=== PATIENT | female | born 1975 | race Caucasian/White ===

== ENCOUNTER 2018-10-02 10:47 | Emergency (ER) | payer OTHER, MEDICAID, SELFPAY ==
[2018-10-02] VITALS (7 sets, daily range): BP systolic 127–148; BP diastolic 78–92; PULSE 60–79; RESP 15–18; TEMP 36.4; O2SAT 98–100
--- NOTE | 2018-10-02 11:55 | PC.NURSE ---
hx of abdominal plasty 2005, developed umbilical pain, noted a pin with abdominal distentions, denies nausea or vomiting, and had normal bm today. denies injury or trauma.
--- NOTE | 2018-10-02 11:57 | PC.NURSE ---
done by practical nursing faculty cynthia. pt tolerated procedure well
[2018-10-02 12:08] LABS: Add Manual Diff / Slide Review NO; Basophils Percent Auto 0.4 % (0-2); Eosinophils Percent Auto 0.6 % (2-4); Hematocrit 42.3 % (36-46); Hemoglobin 14.6 g/dL (12.0-16.0); Lymphocytes Percent Auto 26.1 % (25-40); Mean Corpuscular HGB Conc 34.5 % (30-36); Mean Corpuscular Hemoglobin 34.4 PG (26-34); Mean Corpuscular Volume 99.5 fL (80-100); Monocytes Percent Auto 8.3 % (3-14); Neutrophils Absolute Auto 4400 /uL (3000-5900); Neutrophils Percent Auto 64.6 % (50-75); Platelet Count 208 X10^3/uL (150-400); Red Blood Cell Count 4.25 X10^6/uL (4.0-5.2); Red Cell Distribution Width 12.5 % (11.6-14.8); White Blood Cell Count 6.8 X10^3/uL (4.5-11.0)
[2018-10-02 12:13] LABS: Alanine Aminotransferase 46 IU/L (9-52); Albumin Globulin Ratio 1.5 (1.0-2.8); Alkaline Phosphatase 58 U/L (38-126); Aspartate Aminotransferase 54 IU/L (14-36); Blood Urea Nitrogen 9 mg/dL (7-17); Calcium 9.6 mg/dL (8.4-10.2); Carbon Dioxide 26 mmol/L (22-32); Chloride 99 mmol/L (98-107); Estimated Glomerular Filt Rate > 60.0 mL/min (>60); Globulin 3.4 g/dL (1.7-4.1); Glucose 93 mg/dL (70-100); HEMOLYSIS < 15 (0-50); Lipase 89 U/L (23-300); Potassium 3.5 mmol/L (3.4-5.1); Sodium 139 mmol/L (137-145); Total Protein 8.4 g/dL (6.3-8.2)
--- NOTE | 2018-10-02 12:22 | ED.ABDPAIN ---
HPI - Abdominal Pain <CASSY Vincent - Last Filed: 10/02/18 15:18> General Chief Complaint: Abdominal Pain Stated Complaint: ABDOMINAL PAIN Time Seen by Provider: 10/02/18 12:03 Source: patient Mode of arrival: ambulatory Limitations: no limitations History of Present Illness HPI narrative: c/o abd pain near belly button x 2-3 wks, that is intermittent, and thought at first it was muscular, but denies any injury/trauma, says she had abdominalplasty and you can feel a pin there, but that has always been there, describes the discomfort as feeling bloated and full, nothing makes it better, and nothing makes it worse MD complaint: abdominal pain Onset (ago): week(s) (2-3) Pain Consistency: intermittent Location: periumbilical Severity: mild Quality: fullness Radiation: none Migration to: no migration Relieving factors: nothing Exacerbating factors: nothing Associated symptoms: denies other symptoms Related Data Home Medications Medication Instructions Recorded Confirmed acyclovir 800 mg PO BID #0 12/18/17 10/02/18 alprazolam 0.25 mg PO PRN PRN 10/02/18 10/02/18 oxycodone-acetaminophen 5 - 325 mg PO PRN PRN 10/02/18 10/02/18 Allergies Allergy/AdvReac Type Severity Reaction Status Date / Time epinephrine [EPINEPHRINE] Allergy Unknown Verified 10/02/18 14:15 iodine [IODINE] Allergy Unknown Verified 10/02/18 14:15 nystatin [NYSTATIN] Allergy Unknown Verified 10/02/18 14:16 Sulfa (Sulfonamide Allergy Unknown Verified 10/02/18 14:16 Antibiotics) [SULFA (SULFONAMIDE ANTIBIOTICS)] Review of Systems <CASSY Vincent - Last Filed: 10/02/18 15:18> Constitutional Reports as per HPI Cardiovascular Denies chest pain and Denies dyspnea Respiratory Denies dyspnea Gastrointestinal Gastrointestinal: Reports as per HPI, Reports abdominal pain, Denies melena, Reports bloating, Denies hematochezia, Denies change in bowel habits, Denies change in stool character, Denies constipation, Denies heartburn, Denies diarrhea, Denies nausea and Denies vomiting Genitourinary Denies abnormal menses, Denies abnormal vaginal bleeding, Denies urinary frequency, Denies dysuria, Denies flank pain and Denies vaginal discharge Musculoskeletal Denies back pain Exam <CASSY Vincent - Last Filed: 10/02/18 15:18> Initial Vital Signs Initial Vital Signs: Vital Signs Temperature 97.6 F 10/02/18 11:14 Pulse Rate 71 10/02/18 11:14 Respiratory Rate 18 10/02/18 11:14 Blood Pressure 143/90 H 10/02/18 11:14 Pulse Oximetry 100 10/02/18 11:14 Const General: cooperative, healthy appearing, comfortable and well developed Nutritional Appearance: average body habitus Orientation: alert, awake and oriented x3 Resp Effort & Inspection: normal respiratory effort and able to speak in complete sentences Auscultation: clear to auscultation bilaterally Cardio Rate: regular rate Rhythm: regular rhythm Heart Sounds: S1 normal and S2 normal GI Inspection: normal to inspection, non-distended and no obesity Palpation: soft, No firm, No mass and No tender Auscultation: normal bowel sounds Back/Spine/Pelvis Cervical Spine: cervical ROM normal Thoracic/Lumbar Spine: thoraco-lumbar ROM limited Skin General: no rashes or lesions noted, elasticity normal, turgor normal and warm Neuro General: alert, awake and oriented x3 Cranial Nerves: CN's II-XI intact bilaterally Cognition: normal cognition Speech: speech normal Motor: muscle tone normal throughout Sensory Exam: no sensory deficits noted Psych Appearance: grossly normal and well kempt Mental Status: mental status grossly normal Speech and Movement: speech and movement normal Mood: congruent mood Affect: normal affect Attitude: cooperative Thought Process: normal Thought Content: normal Judgment: judgment good <Leelee Wilkins DO - Last Filed: 10/03/18 20:41> Initial Vital Signs Initial Vital Signs: Vital Signs Temperature 97.6 F 10/02/18 11:14 Pulse Rate 71 10/02/18 11:14 Respiratory Rate 18 10/02/18 11:14 Blood Pressure 143/90 H 10/02/18 11:14 Pulse Oximetry 100 10/02/18 11:14 Course <CASSY Vincent - Last Filed: 10/02/18 15:18> Course Narrative: 1300 verbal report from US tech, neg abd US 1420 results and dc plan discussed Orders Ordered: Discontinued Medications Ketorolac Tromethamine (Toradol) 30 mg IV NOW ONE Stop: 10/02/18 14:27 Last Admin: 10/02/18 14:28 Dose: 30 mg Vital Signs - 8 hr 10/02/18 11:14 10/02/18 12:02 10/02/18 12:30 Temperature 97.6 F Pulse Rate 71 64 60 Respiratory Rate 18 Blood Pressure 143/90 H Blood Pressure [Left Arm] 143/84 H 148/88 H Pulse Oximetry 100 100 100 10/02/18 13:00 10/02/18 13:30 10/02/18 14:00 Temperature Pulse Rate 66 60 61 Respiratory Rate 16 Blood Pressure Blood Pressure [Left Arm] 145/92 H 133/81 127/78 Pulse Oximetry 100 99 98 10/02/18 14:29 Temperature Pulse Rate 79 Respiratory Rate 15 Blood Pressure Blood Pressure [Left Arm] 127/78 Pulse Oximetry <Leelee Wilkins DO - Last Filed: 10/03/18 20:41> Orders Ordered: Discontinued Medications Ketorolac Tromethamine (Toradol) 30 mg IV NOW ONE Stop: 10/02/18 14:27 Last Admin: 10/02/18 14:28 Dose: 30 mg Vital Signs - 8 hr 10/02/18 11:14 10/02/18 12:02 10/02/18 12:30 Temperature 97.6 F Pulse Rate 71 64 60 Respiratory Rate 18 Blood Pressure 143/90 H Blood Pressure [Left Arm] 143/84 H 148/88 H Pulse Oximetry 100 100 100 10/02/18 13:00 10/02/18 13:30 10/02/18 14:00 Temperature Pulse Rate 66 60 61 Respiratory Rate 16 Blood Pressure Blood Pressure [Left Arm] 145/92 H 133/81 127/78 Pulse Oximetry 100 99 98 10/02/18 14:29 Temperature Pulse Rate 79 Respiratory Rate 15 Blood Pressure Blood Pressure [Left Arm] 127/78 Pulse Oximetry MDM - Abdominal Pain <CASSY Vincent - Last Filed: 10/02/18 15:18> Differential Diagnosis Differential diagnosis: Likely abdominal pain, calculus of kidney, constipation, diverticulitis, gastroenteritis, pancreatitis and small bowel obstruction Lab Data Result diagrams: 10/02/18 11:45 10/02/18 11:45 Lab Results 10/02/18 10/02/18 Range/Units 11:45 11:45 WBC 6.8 (4.5-11.0) X10^3/uL RBC 4.25 (4.0-5.2) X10^6/uL Hgb 14.6 (12.0-16.0) g/dL Hct 42.3 (36-46) % MCV 99.5 (80-100) fL MCH 34.4 H (26-34) PG MCHC 34.5 (30-36) % RDW 12.5 (11.6-14.8) % Plt Count 208 (150-400) X10^3/uL Neut % (Auto) 64.6 (50-75) % Lymph % (Auto) 26.1 (25-40) % [place] % (Auto) 8.3 (3-14) % Eos % (Auto) 0.6 L (2-4) % Baso % (Auto) 0.4 (0-2) % Neut # (Auto) 4400 (2899-0257) /uL Sodium 139 (137-145) mmol/L Potassium 3.5 (3.4-5.1) mmol/L Chloride 99 (98-107) mmol/L Carbon Dioxide 26 (22-32) mmol/L BUN 9 (7-17) mg/dL Creatinine 0.60 (0.52-1.04) mg/dL Estimated GFR > 60.0 (>60) mL/min BUN/Creatinine Ratio 15.0 (6-22) Glucose 93 (70-100) mg/dL Calcium 9.6 (8.4-10.2) mg/dL Total Bilirubin 1.0 (0.2-1.3) mg/dL AST 54 H (14-36) IU/L ALT 46 (9-52) IU/L Alkaline Phosphatase 58 (38-126) U/L Total Protein 8.4 H (6.3-8.2) g/dL Albumin 5.0 (3.5-5.0) g/dL Globulin 3.4 (1.7-4.1) g/dL Albumin/Globulin Ratio 1.5 (1.0-2.8) Amylase 70 (30-110) U/L Lipase 89 (23-300) U/L Point of care testing: Point of Care Testing Test Results Negative Urine Dip Bedside Urine Glucose Negative Bedside Urine Bilirubin - Negative Bedside Urine Ketone - Negative Urine Specific [place] 1.010 Bedside Urine Occult Blood - Negative Bedside Urine pH 7.0 Bedside Urine Protein - Negative Bedside Urine Urobilinogen - Negative Bedside Urine Nitrite - Negative Bedside Urine Leukocytes - Negative Esterase Imaging Data US - abdomen: My impression: verbal report from tech - neg <Leelee Wilkins, DO - Last Filed: 10/03/18 20:41> Lab Data Lab Results 10/02/18 10/02/18 Range/Units 11:45 11:45 WBC 6.8 (4.5-11.0) X10^3/uL RBC 4.25 (4.0-5.2) X10^6/uL Hgb 14.6 (12.0-16.0) g/dL Hct 42.3 (36-46) % MCV 99.5 (80-100) fL MCH 34.4 H (26-34) PG MCHC 34.5 (30-36) % RDW 12.5 (11.6-14.8) % Plt Count 208 (150-400) X10^3/uL Neut % (Auto) 64.6 (50-75) % Lymph % (Auto) 26.1 (25-40) % [place] % (Auto) 8.3 (3-14) % Eos % (Auto) 0.6 L (2-4) % Baso % (Auto) 0.4 (0-2) % Neut # (Auto) 4400 (8709-0693) /uL Sodium 139 (137-145) mmol/L Potassium 3.5 (3.4-5.1) mmol/L Chloride 99 (98-107) mmol/L Carbon Dioxide 26 (22-32) mmol/L BUN 9 (7-17) mg/dL Creatinine 0.60 (0.52-1.04) mg/dL Estimated GFR > 60.0 (>60) mL/min BUN/Creatinine Ratio 15.0 (6-22) Glucose 93 (70-100) mg/dL Calcium 9.6 (8.4-10.2) mg/dL Total Bilirubin 1.0 (0.2-1.3) mg/dL AST 54 H (14-36) IU/L ALT 46 (9-52) IU/L Alkaline Phosphatase 58 (38-126) U/L Total Protein 8.4 H (6.3-8.2) g/dL Albumin 5.0 (3.5-5.0) g/dL Globulin 3.4 (1.7-4.1) g/dL Albumin/Globulin Ratio 1.5 (1.0-2.8) Amylase 70 (30-110) U/L Lipase 89 (23-300) U/L Point of care testing: Point of Care Testing Test Results Negative Urine Dip Bedside Urine Glucose Negative Bedside Urine Bilirubin - Negative Bedside Urine Ketone - Negative Urine Specific [place] 1.010 Bedside Urine Occult Blood - Negative Bedside Urine pH 7.0 Bedside Urine Protein - Negative Bedside Urine Urobilinogen - Negative Bedside Urine Nitrite - Negative Bedside Urine Leukocytes - Negative Esterase Imaging Data US - abdomen: Radiologist's impression: [address] [address] Ultrasound Report Signed Patient: Keshia Suarez PMR#: [id number] : 1975Acct:[id number] Age/Sex: 42 / FDate of Service: 10/02/18 Loc: ED Accession Number: [id number] Procedure: US abdomen limited Ordering Provider: Lluvia Last PROCEDURE: US ABDOMEN LIMITED INDICATIONS: PERIUMBILICAL PAIN, BLOATING TECHNIQUE: Real-time focused scanning was performed of the abdomen, with image documentation. COMPARISON: None. FINDINGS: There is no hernia, mass or fluid collection in the periumbilical region. IMPRESSION: No periumbilical hernia, mass or fluid collection. Dictated by: Alexys Canela M.D. on 10/02/2018 at 14:34 Approved by: Alexys Canela M.D. on 10/02/2018 at 14:36 Discharge Plan Departure Patient Disposition: Home Clinical Impression: Abdominal pain Discharge Date/Time: 10/02/18 14:47 Interventions: ED Discharge Assessment Last Done: 10/02/18 14:40 Instructions: Acute Abdominal Pain, DI for Abdominal Pain-Adult Prescriptions: No Action acyclovir 800 MG tablet 800 mg PO BID Qty: 0 RF: 0 alprazolam 0.25 mg tablet 0.25 mg PO PRN PRN (Reason: Anxiety) RF: 0 oxycodone-acetaminophen 5-325 mg tablet 5 - 325 mg PO PRN PRN (Reason: Back Pain) RF: 0 Referrals: Miracle Mathew MD [Primary Care Provider] - (in approx 2-3 days ) <Leelee Wilkins DO - Last Filed: 10/03/18 20:41> Cosign ED Attending Cosignature Attestation: I was immediately available in the department for consultation. This documentation has been reviewed and I agree with assessment and plan. Supervised by Leelee Wilkins DO
--- NOTE | 2018-10-02 12:27 | DI.US.S_ITS ---
PROCEDURE: US ABDOMEN LIMITED INDICATIONS: PERIUMBILICAL PAIN, BLOATING TECHNIQUE: Real-time focused scanning was performed of the abdomen, with image documentation. COMPARISON: None. FINDINGS: There is no hernia, mass or fluid collection in the periumbilical region. IMPRESSION: No periumbilical hernia, mass or fluid collection. Dictated by: Alexys Canela M.D. on 10/02/2018 at 14:34 Approved by: Alexys Canela M.D. on 10/02/2018 at 14:36
--- NOTE | 2018-10-02 12:52 | ED_ITS ---
HPI - Abdominal Pain <CASSY Vincent - Last Filed: 10/02/18 15:18> General Chief Complaint: Abdominal Pain Stated Complaint: ABDOMINAL PAIN Time Seen by Provider: 10/02/18 12:03 Source: patient Mode of arrival: ambulatory Limitations: no limitations History of Present Illness HPI narrative: c/o abd pain near belly button x 2-3 wks, that is intermittent, and thought at first it was muscular, but denies any injury/trauma, says she had abdominalplasty and you can feel a pin there, but that has always been there , describes the discomfort as feeling bloated and full, nothing makes it better , and nothing makes it worse MD complaint: abdominal pain Onset (ago): week(s) (2-3) Pain Consistency: intermittent Location: periumbilical Severity: mild Quality: fullness Radiation: none Migration to: no migration Relieving factors: nothing Exacerbating factors: nothing Associated symptoms: denies other symptoms Related Data Home Medications Medication Instructions Recorded Confirmed acyclovir 800 mg PO BID #0 12/18/17 10/02/18 alprazolam 0.25 mg PO PRN PRN 10/02/18 10/02/18 oxycodone-acetaminophen 5 - 325 mg PO PRN PRN 10/02/18 10/02/18 Allergies Allergy/AdvReac Type Severity Reaction Status Date / Time epinephrine [EPINEPHRINE] Allergy Unknown Verified 10/02/18 14:15 iodine [IODINE] Allergy Unknown Verified 10/02/18 14:15 nystatin [NYSTATIN] Allergy Unknown Verified 10/02/18 14:16 Sulfa (Sulfonamide Allergy Unknown Verified 10/02/18 14:16 Antibiotics) [SULFA (SULFONAMIDE ANTIBIOTICS)] Review of Systems <CASSY Vincent - Last Filed: 10/02/18 15:18> Constitutional Reports as per HPI Cardiovascular Denies chest pain and Denies dyspnea Respiratory Denies dyspnea Gastrointestinal Gastrointestinal: Reports as per HPI, Reports abdominal pain, Denies melena, Reports bloating, Denies hematochezia, Denies change in bowel habits, Denies change in stool character, Denies constipation, Denies heartburn, Denies diarrhea, Denies nausea and Denies vomiting Genitourinary Denies abnormal menses, Denies abnormal vaginal bleeding, Denies urinary frequency, Denies dysuria, Denies flank pain and Denies vaginal discharge Musculoskeletal Denies back pain Exam <CASSY Vincent - Last Filed: 10/02/18 15:18> Initial Vital Signs Initial Vital Signs: Vital Signs Temperature 97.6 F 10/02/18 11:14 Pulse Rate 71 10/02/18 11:14 Respiratory Rate 18 10/02/18 11:14 Blood Pressure 143/90 H 10/02/18 11:14 Pulse Oximetry 100 10/02/18 11:14 Const General: cooperative, healthy appearing, comfortable and well developed Nutritional Appearance: average body habitus Orientation: alert, awake and oriented x3 Resp Effort & Inspection: normal respiratory effort and able to speak in complete sentences Auscultation: clear to auscultation bilaterally Cardio Rate: regular rate Rhythm: regular rhythm Heart Sounds: S1 normal and S2 normal GI Inspection: normal to inspection, non-distended and no obesity Palpation: soft, No firm, No mass and No tender Auscultation: normal bowel sounds Back/Spine/Pelvis Cervical Spine: cervical ROM normal Thoracic/Lumbar Spine: thoraco-lumbar ROM limited Skin General: no rashes or lesions noted, elasticity normal, turgor normal and warm Neuro General: alert, awake and oriented x3 Cranial Nerves: CN's II-XI intact bilaterally Cognition: normal cognition Speech: speech normal Motor: muscle tone normal throughout Sensory Exam: no sensory deficits noted Psych Appearance: grossly normal and well kempt Mental Status: mental status grossly normal Speech and Movement: speech and movement normal Mood: congruent mood Affect: normal affect Attitude: cooperative Thought Process: normal Thought Content: normal Judgment: judgment good <Leelee Wilkins DO - Last Filed: 10/03/18 20:41> Initial Vital Signs Initial Vital Signs: Vital Signs Temperature 97.6 F 10/02/18 11:14 Pulse Rate 71 10/02/18 11:14 Respiratory Rate 18 10/02/18 11:14 Blood Pressure 143/90 H 10/02/18 11:14 Pulse Oximetry 100 10/02/18 11:14 Course <CASSY Vincent - Last Filed: 10/02/18 15:18> Course Narrative: 1300 verbal report from US tech, neg abd US 1420 results and dc plan discussed Orders Ordered: Discontinued Medications Ketorolac Tromethamine (Toradol) 30 mg IV NOW ONE Stop: 10/02/18 14:27 Last Admin: 10/02/18 14:28 Dose: 30 mg Vital Signs - 8 hr 10/02/18 11:14 10/02/18 12:02 10/02/18 12:30 Temperature 97.6 F Pulse Rate 71 64 60 Respiratory Rate 18 Blood Pressure 143/90 H Blood Pressure [Left Arm] 143/84 H 148/88 H Pulse Oximetry 100 100 100 10/02/18 13:00 10/02/18 13:30 10/02/18 14:00 Temperature Pulse Rate 66 60 61 Respiratory Rate 16 Blood Pressure Blood Pressure [Left Arm] 145/92 H 133/81 127/78 Pulse Oximetry 100 99 98 10/02/18 14:29 Temperature Pulse Rate 79 Respiratory Rate 15 Blood Pressure Blood Pressure [Left Arm] 127/78 Pulse Oximetry <Leelee Wilkins DO - Last Filed: 10/03/18 20:41> Orders Ordered: Discontinued Medications Ketorolac Tromethamine (Toradol) 30 mg IV NOW ONE Stop: 10/02/18 14:27 Last Admin: 10/02/18 14:28 Dose: 30 mg Vital Signs - 8 hr 10/02/18 11:14 10/02/18 12:02 10/02/18 12:30 Temperature 97.6 F Pulse Rate 71 64 60 Respiratory Rate 18 Blood Pressure 143/90 H Blood Pressure [Left Arm] 143/84 H 148/88 H Pulse Oximetry 100 100 100 10/02/18 13:00 10/02/18 13:30 10/02/18 14:00 Temperature Pulse Rate 66 60 61 Respiratory Rate 16 Blood Pressure Blood Pressure [Left Arm] 145/92 H 133/81 127/78 Pulse Oximetry 100 99 98 10/02/18 14:29 Temperature Pulse Rate 79 Respiratory Rate 15 Blood Pressure Blood Pressure [Left Arm] 127/78 Pulse Oximetry MDM - Abdominal Pain <CASSY Vincent - Last Filed: 10/02/18 15:18> Differential Diagnosis Differential diagnosis: Likely abdominal pain, calculus of kidney, constipation , diverticulitis, gastroenteritis, pancreatitis and small bowel obstruction Lab Data Result diagrams: 10/02/18 11:45 10/02/18 11:45 Lab Results 10/02/18 10/02/18 Range/Units 11:45 11:45 WBC 6.8 (4.5-11.0) X10^3/uL RBC 4.25 (4.0-5.2) X10^6/uL Hgb 14.6 (12.0-16.0) g/dL Hct 42.3 (36-46) % MCV 99.5 (80-100) fL MCH 34.4 H (26-34) PG MCHC 34.5 (30-36) % RDW 12.5 (11.6-14.8) % Plt Count 208 (150-400) X10^3/uL Neut % (Auto) 64.6 (50-75) % Lymph % (Auto) 26.1 (25-40) % [place] % (Auto) 8.3 (3-14) % Eos % (Auto) 0.6 L (2-4) % Baso % (Auto) 0.4 (0-2) % Neut # (Auto) 4400 (7474-9349) /uL Sodium 139 (137-145) mmol/L Potassium 3.5 (3.4-5.1) mmol/L Chloride 99 (98-107) mmol/L Carbon Dioxide 26 (22-32) mmol/L BUN 9 (7-17) mg/dL Creatinine 0.60 (0.52-1.04) mg/dL Estimated GFR > 60.0 (>60) mL/min BUN/Creatinine Ratio 15.0 (6-22) Glucose 93 (70-100) mg/dL Calcium 9.6 (8.4-10.2) mg/dL Total Bilirubin 1.0 (0.2-1.3) mg/dL AST 54 H (14-36) IU/L ALT 46 (9-52) IU/L Alkaline Phosphatase 58 (38-126) U/L Total Protein 8.4 H (6.3-8.2) g/dL Albumin 5.0 (3.5-5.0) g/dL Globulin 3.4 (1.7-4.1) g/dL Albumin/Globulin Ratio 1.5 (1.0-2.8) Amylase 70 (30-110) U/L Lipase 89 (23-300) U/L Point of care testing: Point of Care Testing Test Results Negative Urine Dip Bedside Urine Glucose Negative Bedside Urine Bilirubin - Negative Bedside Urine Ketone - Negative Urine Specific [place] 1.010 Bedside Urine Occult Blood - Negative Bedside Urine pH 7.0 Bedside Urine Protein - Negative Bedside Urine Urobilinogen - Negative Bedside Urine Nitrite - Negative Bedside Urine Leukocytes - Negative Esterase Imaging Data US - abdomen: My impression: verbal report from tech - neg <Leelee Wilkins, DO - Last Filed: 10/03/18 20:41> Lab Data Lab Results 10/02/18 10/02/18 Range/Units 11:45 11:45 WBC 6.8 (4.5-11.0) X10^3/uL RBC 4.25 (4.0-5.2) X10^6/uL Hgb 14.6 (12.0-16.0) g/dL Hct 42.3 (36-46) % MCV 99.5 (80-100) fL MCH 34.4 H (26-34) PG MCHC 34.5 (30-36) % RDW 12.5 (11.6-14.8) % Plt Count 208 (150-400) X10^3/uL Neut % (Auto) 64.6 (50-75) % Lymph % (Auto) 26.1 (25-40) % [place] % (Auto) 8.3 (3-14) % Eos % (Auto) 0.6 L (2-4) % Baso % (Auto) 0.4 (0-2) % Neut # (Auto) 4400 (7922-7462) /uL Sodium 139 (137-145) mmol/L Potassium 3.5 (3.4-5.1) mmol/L Chloride 99 (98-107) mmol/L Carbon Dioxide 26 (22-32) mmol/L BUN 9 (7-17) mg/dL Creatinine 0.60 (0.52-1.04) mg/dL Estimated GFR > 60.0 (>60) mL/min BUN/Creatinine Ratio 15.0 (6-22) Glucose 93 (70-100) mg/dL Calcium 9.6 (8.4-10.2) mg/dL Total Bilirubin 1.0 (0.2-1.3) mg/dL AST 54 H (14-36) IU/L ALT 46 (9-52) IU/L Alkaline Phosphatase 58 (38-126) U/L Total Protein 8.4 H (6.3-8.2) g/dL Albumin 5.0 (3.5-5.0) g/dL Globulin 3.4 (1.7-4.1) g/dL Albumin/Globulin Ratio 1.5 (1.0-2.8) Amylase 70 (30-110) U/L Lipase 89 (23-300) U/L Point of care testing: Point of Care Testing Test Results Negative Urine Dip Bedside Urine Glucose Negative Bedside Urine Bilirubin - Negative Bedside Urine Ketone - Negative Urine Specific [place] 1.010 Bedside Urine Occult Blood - Negative Bedside Urine pH 7.0 Bedside Urine Protein - Negative Bedside Urine Urobilinogen - Negative Bedside Urine Nitrite - Negative Bedside Urine Leukocytes - Negative Esterase Imaging Data US - abdomen: Radiologist's impression: [address] [address] Ultrasound Report Signed Patient: Keshia Suarez PMR#: [id number] : 1975Acct:[id number] Age/Sex: 42 / FDate of Service: 10/02/18 Loc: ED Accession Number: [id number] Procedure: US abdomen limited Ordering Provider: Lluvia Last PROCEDURE: US ABDOMEN LIMITED INDICATIONS: PERIUMBILICAL PAIN, BLOATING TECHNIQUE: Real-time focused scanning was performed of the abdomen, with image documentation. COMPARISON: None. FINDINGS: There is no hernia, mass or fluid collection in the periumbilical region. IMPRESSION: No periumbilical hernia, mass or fluid collection. Dictated by: Alexys Canela M.D. on 10/02/2018 at 14:34 Approved by: Alexys Canela M.D. on 10/02/2018 at 14:36 Discharge Plan Departure Patient Disposition: Home Clinical Impression: Abdominal pain Discharge Date/Time: 10/02/18 14:47 Interventions: ED Discharge Assessment Last Done: 10/02/18 14:40 Instructions: Acute Abdominal Pain, DI for Abdominal Pain-Adult Prescriptions: No Action acyclovir 800 MG tablet 800 mg PO BID Qty: 0 RF: 0 alprazolam 0.25 mg tablet 0.25 mg PO PRN PRN (Reason: Anxiety) RF: 0 oxycodone-acetaminophen 5-325 mg tablet 5 - 325 mg PO PRN PRN (Reason: Back Pain) RF: 0 Referrals: Miracle Mathew MD [Primary Care Provider] - (in approx 2-3 days ) <Leelee Wilkins DO - Last Filed: 10/03/18 20:41> Cosign ED Attending Cosignature Attestation: I was immediately available in the department for consultation. This documentation has been reviewed and I agree with assessment and plan. Supervised by Leelee Wilkins DO
[2018-10-02 14:16] LABS: Amylase 70 U/L (30-110)
[2018-10-02] MEDS: KETOROLAC 60 MG/2 ML VIAL 30 MG IV (14:28)
== END 2018-10-02 14:47 | disposition home or self-care (01) ==
PROVIDERS: Emergency Medicine; Emergency Provider Nurse Practitioner; Family Provider Family Medicine; PCP Family Medicine
DX: R10.9 Unspecified abdominal pain (principal)
CPT/HCPCS: 76705; 80053; 81003; 81025; 82150; 83690; 85025; 93005; 96374; 99283; 99285; J1885

== ENCOUNTER 2021-01-17 12:10 | Emergency (ER) | payer BC, OTHER, MEDICAID, SELFPAY ==
[2021-01-17 12:30] VITALS: BP 162/95; PULSE 77; RESP 16; TEMP 36.8; O2SAT 97; BMI 23.1
[2021-01-17 13:06] LABS: Add Manual Diff / Slide Review NO; Basophils Absolute Auto 0 /uL (0-100); Basophils Percent Auto 0.2 % (0-2); Eosinophils Absolute Auto 0 /uL (0-450); Eosinophils Percent Auto 0.4 % (2-4); Hematocrit 40.3 % (36-46); Lymphocytes Absolute Auto 1200 /uL (1100-4500); Lymphocytes Percent Auto 19.1 % (25-40); Mean Corpuscular HGB Conc 34.8 % (30-36); Mean Corpuscular Hemoglobin 35.1 PG (26-34); Monocytes Absolute Auto 600 /uL (0-900); Monocytes Percent Auto 8.9 % (3-14); Neutrophils Absolute Auto 4600 /uL (1500-7000); Neutrophils Percent Auto 71.4 % (50-75); Platelet Count 174 X10^3/uL (150-400); Red Blood Cell Count 3.98 X10^6/uL (4.0-5.2); Red Cell Distribution Width 12.2 % (11.6-14.8); White Blood Cell Count 6.5 X10^3/uL (4.5-11.0)
[2021-01-17 13:13] LABS: Prothrombin Time 11.2 SECONDS (10.1-12.7)
[2021-01-17 13:15] LABS: PTT Partial Thromboplastin Tim 29 SECONDS (26.4-36.2)
[2021-01-17 13:17] VITALS: BP 155/86; PULSE 61; RESP 18; O2SAT 100
[2021-01-17 13:36] LABS: Alanine Aminotransferase 106 IU/L (<35); Albumin 4.7 g/dL (3.5-5.0); Albumin Globulin Ratio 1.3 (1.0-2.8); Alkaline Phosphatase 77 U/L (38-126); Aspartate Aminotransferase 131 IU/L (14-36); BUN Creatinine Ratio 16.9 (6-22); Bilirubin Total 0.7 mg/dL (0.2-1.3); Blood Urea Nitrogen 10 mg/dL (7-17); Calcium 9.6 mg/dL (8.4-10.2); Carbon Dioxide 26 mmol/L (22-32); Chloride 101 mmol/L (98-107); Estimated Glomerular Filt Rate > 60.0 mL/min (>60); Globulin 3.6 g/dL (1.7-4.1); Glucose 101 mg/dL (70-100); HEMOLYSIS 23 (0-50); Lipase 89 U/L (23-300); Potassium 4.4 mmol/L (3.4-5.1); Sodium 133 mmol/L (137-145); Total Protein 8.3 g/dL (6.3-8.2)
[2021-01-17 14:11] LABS: Magnesium 1.4 mg/dL (1.6-2.3)
[2021-01-17 14:21] LABS: NT-proBNP (BNP-Adult 18+) 54 pg/mL (<125)
[2021-01-17] MEDS: SIMETHICONE 80 MG TABLET PO (14:22)
[2021-01-17 14:54] LABS: Thyroid Stimulating Hormone 0.975 uIU/mL (0.47-4.68)
--- NOTE | 2021-01-17 15:13 | ED.ABDPAIN ---
HPI - Abdominal Pain <KEMI Kimbrough-BC - Last Filed: 01/17/21 15:29> General Chief Complaint: Abdominal Pain Stated Complaint: Abd Pain and 9lb Weight Gain,Swelling Time Seen by Provider: 01/17/21 13:42 Source: patient Mode of arrival: Ambulatory Limitations: no limitations History of Present Illness HPI narrative: The patient is a 45-year-old female who denies pertinent medical history presents with a chief complaint of abdominal bloating, as well as a 7 lb weight gain over the past month. She notes that she went from running 4 times a week to running once to twice a week. She also states that she has been eating knee and she use, which she states her system does not tolerate well. She states that she has makes her bloated. She notes that she has had looser stools today. Denies any dysuria urgency or frequency. Denies any nausea or vomiting. Denies any fevers muscle aches or chills. She has not followed up with primary care provider regarding this. She denies any history of thyroid issues. Related Data Home Medications Medication Instructions Recorded Confirmed acyclovir 800 mg PO BID #0 12/18/17 10/02/18 alprazolam 0.25 mg PO PRN PRN 10/02/18 10/02/18 oxycodone-acetaminophen 5 - 325 mg PO PRN PRN 10/02/18 10/02/18 Allergies Allergy/AdvReac Type Severity Reaction Status Date / Time epinephrine [EPINEPHRINE] Allergy Unknown Verified 10/02/18 14:15 iodine [IODINE] Allergy Unknown Verified 10/02/18 14:15 nystatin [NYSTATIN] Allergy Unknown Verified 10/02/18 14:16 Sulfa (Sulfonamide Allergy Unknown Verified 10/02/18 14:16 Antibiotics) [SULFA (SULFONAMIDE ANTIBIOTICS)] Review of Systems <PRINCESS Kimbrough - Last Filed: 01/17/21 15:29> Review of Systems Narrative: GENERAL: Denies chills, fatigue, malaise, fever, sweats. HEENT: Denies sinus pain, ear pain, sore throat, difficulty swallowing, dizziness. RESPIRATORY: Denies dyspnea, cough, wheezing, hemoptysis, sputum. CARDIOVASCULAR: Denies chest pain, palpitations, orthopnea, edema, GASTROINTESTINAL: See HPI : Denies dysuria, frequency, incontinence, hematuria, urinary retention. MUSCULOSKELETAL: denies weakness, joint pain, or bony pain SKIN: Denies rash, skin lesions, or other NEUROLOGIC: Denies weakness, headache, numbness, change in speech, confusion, seizures, incoordination. PSYCHIATRIC: No concerning psychosocial issues. 12 point review of systems is negative except for those stated above Patient History <Leelee KEMI Erazo-MAITE - Last Filed: 01/17/21 15:29> Social History Smoking Status: Former smoker Smoking Status: Former smoker alcohol intake frequency: 3 or more drinks per day Substance Use Type: does not use Exam <PRINCESS Kimbrough - Last Filed: 01/17/21 15:29> Narrative Exam Narrative: GENERAL: This is a well-nourished, well-developed patient, in no acute distress HEAD: Atraumatic. Normocephalic. No temporal or scalp tenderness. EYES: Pupils equal round and reactive. Extraocular motions intact. No scleral icterus. No injection or drainage. ENT: Nose without bleeding, purulent drainage or septal hematoma. Wearing a mask. Airway patent. NECK: Trachea midline. No JVD or lymphadenopathy. Supple, nontender, no meningeal signs. CARDIOVASCULAR: Regular rate and rhythm RESPIRATORY: Clear to auscultation. Breath sounds equal bilaterally. No wheezes, rales, or rhonchi. No cough. No increased respiratory effort. No accessory muscle use. GASTROINTESTINAL: Abdomen soft, non-tender, nondistended. No hepato-splenomegaly, or palpable masses. Active bowel sounds all 4 quadrants. No guarding. No pain to right upper quadrant, left upper quadrant left lower quadrant right lower quadrant palpation. EXTREMITIES: No clubbing, cyanosis, or edema. No joint tenderness, effusion, or edema noted. BACK: Nontender without deformity or crepitance. No flank tenderness. NEURO: AOx3. SKIN: No rash or erythema on visible skin Initial Vital Signs Initial Vital Signs: Vital Signs Temperature 98.3 F 01/17/21 12:30 Pulse Rate 77 01/17/21 12:30 Respiratory Rate 16 01/17/21 12:30 Blood Pressure 162/95 H 01/17/21 12:30 Pulse Oximetry 97 01/17/21 12:30 <Pancho Bernal MD - Last Filed: 01/17/21 18:46> Initial Vital Signs Initial Vital Signs: Vital Signs Temperature 98.3 F 01/17/21 12:30 Pulse Rate 77 01/17/21 12:30 Respiratory Rate 16 01/17/21 12:30 Blood Pressure 162/95 H 01/17/21 12:30 Pulse Oximetry 97 01/17/21 12:30 Scores <PRINCESS Kimbrough - Last Filed: 01/17/21 15:29> GCS Nate coma scale eye opening: Spontaneous Nate coma scale verbal response: Orientated Nate coma scale motor response: Obey commands [place] coma scale total score: 15 Course <PRINCESS Kimbrough - Last Filed: 01/17/21 15:29> Orders Ordered: ED Orders 01/17/21 12:50 Complete Blood Count AUTO DIFF Stat Comprehensive Metabolic Panel Stat Lipase Stat Partial Thromboplastin Time Stat Prothrombin Time INR Stat 01/17/21 12:58 Magnesium Stat NT-proBNP (BNP-Adult 18+) Stat Thyroid Stimulating Hormone Stat Discontinued Medications Magnesium Oxide (Magnesium Oxide 400 Mg Tablet) 400 mg PO NOW ONE Stop: 01/17/21 15:13 Last Admin: 01/17/21 15:18 Dose: 400 mg Documented by: KATERINA Simethicone (Simethicone 80 Mg Tablet) 80 mg PO NOW ONE Stop: 01/17/21 14:11 Last Admin: 01/17/21 14:22 Dose: 80 mg Documented by: BSMEN Vital Signs Vital signs: Vital Signs - 8 hr 01/17/21 12:30 01/17/21 13:17 01/17/21 15:34 Temperature 98.3 F Pulse Rate 77 61 66 Respiratory Rate 16 18 16 Blood Pressure 162/95 H 155/86 H 140/89 Pulse Oximetry 97 100 99 <Pancho Bernal MD - Last Filed: 01/17/21 18:46> Orders Ordered: ED Orders 01/17/21 12:50 Complete Blood Count AUTO DIFF Stat Comprehensive Metabolic Panel Stat Lipase Stat Partial Thromboplastin Time Stat Prothrombin Time INR Stat 01/17/21 12:58 Magnesium Stat NT-proBNP (BNP-Adult 18+) Stat Thyroid Stimulating Hormone Stat Discontinued Medications Magnesium Oxide (Magnesium Oxide 400 Mg Tablet) 400 mg PO NOW ONE Stop: 01/17/21 15:13 Last Admin: 01/17/21 15:18 Dose: 400 mg Documented by: KATERINA Simethicone (Simethicone 80 Mg Tablet) 80 mg PO NOW ONE Stop: 01/17/21 14:11 Last Admin: 01/17/21 14:22 Dose: 80 mg Documented by: JOSEFINA Vital Signs Vital signs: Vital Signs - 8 hr 01/17/21 12:30 01/17/21 13:17 01/17/21 15:34 Temperature 98.3 F Pulse Rate 77 61 66 Respiratory Rate 16 18 16 Blood Pressure 162/95 H 155/86 H 140/89 Pulse Oximetry 97 100 99 MDM - Abdominal Pain <KEMI Kimbrough- - Last Filed: 01/17/21 15:29> Lab Data Result diagrams: 01/17/21 12:50 01/17/21 12:50 Labs: Lab Results 01/17/21 01/17/21 01/17/21 Range/Units 12:50 12:50 12:50 WBC 6.5 (4.5-11.0) X10^3/uL RBC 3.98 L (4.0-5.2) X10^6/uL Hgb 14.0 (12.0-16.0) g/dL Hct 40.3 (36-46) % MCV 101.0 H (80-100) fL MCH 35.1 H (26-34) PG MCHC 34.8 (30-36) % RDW 12.2 (11.6-14.8) % Plt Count 174 (150-400) X10^3/uL Neut % (Auto) 71.4 (50-75) % Lymph % (Auto) 19.1 L (25-40) % [place] % (Auto) 8.9 (3-14) % Eos % (Auto) 0.4 L (2-4) % Baso % (Auto) 0.2 (0-2) % Neut # (Auto) 4600 (7878-3006) /uL Lymph # (Auto) 1200 (0538-6753) /uL [place] # (Auto) 600 (0-900) /uL Eos # (Auto) 0 (0-450) /uL Baso # (Auto) 0 (0-100) /uL PT 11.2 (10.1-12.7) SECONDS INR 1.0 (0.9-1.3) APTT 29 (26.4-36.2) SECONDS Sodium 133 L (137-145) mmol/L Potassium 4.4 (3.4-5.1) mmol/L Chloride 101 (98-107) mmol/L Carbon Dioxide 26 (22-32) mmol/L BUN 10 (7-17) mg/dL Creatinine 0.59 (0.52-1.04) mg/dL Estimated GFR > 60.0 (>60) mL/min BUN/Creatinine Ratio 16.9 (6-22) Glucose 101 H (70-100) mg/dL Calcium 9.6 (8.4-10.2) mg/dL Magnesium (1.6-2.3) mg/dL Total Bilirubin 0.7 (0.2-1.3) mg/dL AST 131 H (14-36) IU/L ALT 106 H (<35) IU/L Alkaline Phosphatase 77 (38-126) U/L NT-Pro-B Natriuret Pep (<125) pg/mL Total Protein 8.3 H (6.3-8.2) g/dL Albumin 4.7 (3.5-5.0) g/dL Globulin 3.6 (1.7-4.1) g/dL Albumin/Globulin Ratio 1.3 (1.0-2.8) Lipase 89 (23-300) U/L TSH (0.47-4.68) uIU/mL 01/17/21 01/17/21 Range/Units 12:58 12:58 WBC (4.5-11.0) X10^3/uL RBC (4.0-5.2) X10^6/uL Hgb (12.0-16.0) g/dL Hct (36-46) % MCV (80-100) fL MCH (26-34) PG MCHC (30-36) % RDW (11.6-14.8) % Plt Count (150-400) X10^3/uL Neut % (Auto) (50-75) % Lymph % (Auto) (25-40) % [place] % (Auto) (3-14) % Eos % (Auto) (2-4) % Baso % (Auto) (0-2) % Neut # (Auto) (7718-6982) /uL Lymph # (Auto) (8165-3996) /uL [place] # (Auto) (0-900) /uL Eos # (Auto) (0-450) /uL Baso # (Auto) (0-100) /uL PT (10.1-12.7) SECONDS INR (0.9-1.3) APTT (26.4-36.2) SECONDS Sodium (137-145) mmol/L Potassium (3.4-5.1) mmol/L Chloride (98-107) mmol/L Carbon Dioxide (22-32) mmol/L BUN (7-17) mg/dL Creatinine (0.52-1.04) mg/dL Estimated GFR (>60) mL/min BUN/Creatinine Ratio (6-22) Glucose (70-100) mg/dL Calcium (8.4-10.2) mg/dL Magnesium 1.4 L (1.6-2.3) mg/dL Total Bilirubin (0.2-1.3) mg/dL AST (14-36) IU/L ALT (<35) IU/L Alkaline Phosphatase (38-126) U/L NT-Pro-B Natriuret Pep 54 (<125) pg/mL Total Protein (6.3-8.2) g/dL Albumin (3.5-5.0) g/dL Globulin (1.7-4.1) g/dL Albumin/Globulin Ratio (1.0-2.8) Lipase (23-300) U/L TSH 0.975 (0.47-4.68) uIU/mL Point of care testing: Point of Care Testing Test Results Negative Urine Dip Bedside Urine Glucose Negative Bedside Urine Bilirubin - Negative Bedside Urine Ketone - Negative Urine Specific [place] 1.020 Bedside Urine Occult Blood - Negative Bedside Urine pH 6.0 Bedside Urine Protein - Negative Bedside Urine Urobilinogen - Negative Bedside Urine Nitrite - Negative Bedside Urine Leukocytes - Negative Esterase MDM Narrative Medical decision making narrative: The patient is a 45-year-old female who presents with a chief complaint of 7 lb weight gain over the past month. She has no acute distress on exam, no pain on repeated abdominal exams. Overall lab work is reassuring with no leukocytosis. She has no red flag symptoms of abdominal pain with fever, inability keep down fluids etcetera. Elected to hold off on imaging today. I did strongly encourage her to change her diet, and not eat foods such as me and she has that she knows do not agree with her. Encouraged her keeping a food journal. Discussed at length come back to the ER for acute concerns such as abdominal pain with fever, inability keep down fluids etcetera. Encouraged primary care provider follow-up in the next few days. Patient has no questions or concerns upon discharge states understanding return precautions as well as follow-up care. Was noted to be slightly low on magnesium, so replaced in the emergency department. Patient has been hemodynamically stable appearing well and nontoxic throughout her stay in the ER. <Pancho Bernal MD - Last Filed: 01/17/21 18:46> Lab Data Labs: Lab Results 01/17/21 01/17/21 01/17/21 Range/Units 12:50 12:50 12:50 WBC 6.5 (4.5-11.0) X10^3/uL RBC 3.98 L (4.0-5.2) X10^6/uL Hgb 14.0 (12.0-16.0) g/dL Hct 40.3 (36-46) % MCV 101.0 H (80-100) fL MCH 35.1 H (26-34) PG MCHC 34.8 (30-36) % RDW 12.2 (11.6-14.8) % Plt Count 174 (150-400) X10^3/uL Neut % (Auto) 71.4 (50-75) % Lymph % (Auto) 19.1 L (25-40) % [place] % (Auto) 8.9 (3-14) % Eos % (Auto) 0.4 L (2-4) % Baso % (Auto) 0.2 (0-2) % Neut # (Auto) 4600 (5311-0662) /uL Lymph # (Auto) 1200 (0149-0213) /uL [place] # (Auto) 600 (0-900) /uL Eos # (Auto) 0 (0-450) /uL Baso # (Auto) 0 (0-100) /uL PT 11.2 (10.1-12.7) SECONDS INR 1.0 (0.9-1.3) APTT 29 (26.4-36.2) SECONDS Sodium 133 L (137-145) mmol/L Potassium 4.4 (3.4-5.1) mmol/L Chloride 101 (98-107) mmol/L Carbon Dioxide 26 (22-32) mmol/L BUN 10 (7-17) mg/dL Creatinine 0.59 (0.52-1.04) mg/dL Estimated GFR > 60.0 (>60) mL/min BUN/Creatinine Ratio 16.9 (6-22) Glucose 101 H (70-100) mg/dL Calcium 9.6 (8.4-10.2) mg/dL Magnesium (1.6-2.3) mg/dL Total Bilirubin 0.7 (0.2-1.3) mg/dL AST 131 H (14-36) IU/L ALT 106 H (<35) IU/L Alkaline Phosphatase 77 (38-126) U/L NT-Pro-B Natriuret Pep (<125) pg/mL Total Protein 8.3 H (6.3-8.2) g/dL Albumin 4.7 (3.5-5.0) g/dL Globulin 3.6 (1.7-4.1) g/dL Albumin/Globulin Ratio 1.3 (1.0-2.8) Lipase 89 (23-300) U/L TSH (0.47-4.68) uIU/mL 01/17/21 01/17/21 Range/Units 12:58 12:58 WBC (4.5-11.0) X10^3/uL RBC (4.0-5.2) X10^6/uL Hgb (12.0-16.0) g/dL Hct (36-46) % MCV (80-100) fL MCH (26-34) PG MCHC (30-36) % RDW (11.6-14.8) % Plt Count (150-400) X10^3/uL Neut % (Auto) (50-75) % Lymph % (Auto) (25-40) % [place] % (Auto) (3-14) % Eos % (Auto) (2-4) % Baso % (Auto) (0-2) % Neut # (Auto) (9869-7109) /uL Lymph # (Auto) (4860-0059) /uL [place] # (Auto) (0-900) /uL Eos # (Auto) (0-450) /uL Baso # (Auto) (0-100) /uL PT (10.1-12.7) SECONDS INR (0.9-1.3) APTT (26.4-36.2) SECONDS Sodium (137-145) mmol/L Potassium (3.4-5.1) mmol/L Chloride (98-107) mmol/L Carbon Dioxide (22-32) mmol/L BUN (7-17) mg/dL Creatinine (0.52-1.04) mg/dL Estimated GFR (>60) mL/min BUN/Creatinine Ratio (6-22) Glucose (70-100) mg/dL Calcium (8.4-10.2) mg/dL Magnesium 1.4 L (1.6-2.3) mg/dL Total Bilirubin (0.2-1.3) mg/dL AST (14-36) IU/L ALT (<35) IU/L Alkaline Phosphatase (38-126) U/L NT-Pro-B Natriuret Pep 54 (<125) pg/mL Total Protein (6.3-8.2) g/dL Albumin (3.5-5.0) g/dL Globulin (1.7-4.1) g/dL Albumin/Globulin Ratio (1.0-2.8) Lipase (23-300) U/L TSH 0.975 (0.47-4.68) uIU/mL Point of care testing: Point of Care Testing Test Results Negative Urine Dip Bedside Urine Glucose Negative Bedside Urine Bilirubin - Negative Bedside Urine Ketone - Negative Urine Specific [place] 1.020 Bedside Urine Occult Blood - Negative Bedside Urine pH 6.0 Bedside Urine Protein - Negative Bedside Urine Urobilinogen - Negative Bedside Urine Nitrite - Negative Bedside Urine Leukocytes - Negative Esterase Discharge Plan Departure Patient Disposition: Home Clinical Impression: Abdominal bloating, Weight gain, Elevated AST (SGOT), Elevated alanine aminotransferase (ALT) level Instructions: How to Avoid Gas, Intestinal Gas (Alternative Therapy), DI for Abdominal Pain-Adult Activity Restrictions/Additional Instructions: Thank you for trusting us with your care today As discussed, please follow-up with primary care provider in the next few days Please come back to the emergency department for any acute concerns such as abdominal pain with fever inability keep down fluids etcetera. I strongly suggest staying away from red meat and dairy as these have irritated her stomach in the past. Maybe keep a food journal. Overall your lab work was very reassuring today with good kidney function and no elevated white blood cell count, though we did note very slightly elevated liver enzymes. I suggest decreasing your alcohol intake. Prescriptions: No Action acyclovir 800 MG tablet 800 mg PO BID Qty: 0 RF: 0 alprazolam 0.25 mg tablet 0.25 mg PO PRN PRN (Reason: Anxiety) RF: 0 oxycodone-acetaminophen 5-325 mg tablet 5 - 325 mg PO PRN PRN (Reason: Back Pain) RF: 0 Referrals: Miracle Mathew MD [Primary Care Provider] - <Pancho Bernal MD - Last Filed: 01/17/21 18:46> Cosign ED Attending Cosignature Attestation: I was immediately available in the department for consultation. This documentation has been reviewed and I agree with assessment and plan. Supervised by Pancho Bernal MD
[2021-01-17] MEDS: MAGNESIUM OXIDE 400 MG TABLET PO (15:18)
[2021-01-17 15:34] VITALS: BP 140/89; PULSE 66; RESP 16; O2SAT 99
== END 2021-01-17 15:35 | disposition home or self-care (01) ==
PROVIDERS: Emergency Medicine; Emergency Provider Nurse Practitioner Family; Family Provider Family Medicine; PCP Family Medicine
DX: R14.0 Abdominal distension (gaseous) (principal); R63.5 Abnormal weight gain; R74.01 Elevation of levels of liver transaminase levels
CPT/HCPCS: 36415; 80053; 81003; 81025; 83690; 83735; 83880; 84443; 85025; 85610; 85730; 99283

== ENCOUNTER → 2023-08-17 17:18 | Outpatient (CLI) | payer BC, SELFPAY ==
--- NOTE | 2023-08-17 | DI.MRI.S_ITS ---
PROCEDURE: MR HEAD/BRAIN WO CON INDICATIONS: Tinnitis of lt ear, Hypercusis of lt ear TECHNIQUE: Noncontrast axial T1 spin echo, axial T2 fast spin echo, sagittal and axial FLAIR, coronal T2 fast spin echo, axial gradient echo, axial diffusion and ADC through the brain. Thin section T2 weighted images through the internal auditory canals are obtained as well. COMPARISON: None. FINDINGS: Image quality: Excellent. CSF Spaces: Basal cisterns are patent. No extra-axial fluid collections. Ventricles are normal in size and shape. IAC: 7th and 8th cranial nerve root complexes are unremarkable. Brain: No intracranial masses or hemorrhage. Guillen/white matter interface is normal. Brainstem appears normal. Diffusion-weighted sequence is unremarkable without evidence of acute infarct. Normal intravascular flow voids are present. Skull and face: Calvarium has normal marrow signal. Orbits appear normal. Sinuses: Sinuses and mastoids are clear. IMPRESSION: Unremarkable MRI of the brain and internal auditory canals Approved by: Pancho Thompson M.D. on 08/18/2023 at 14:25
== END ==
PROVIDERS: Family Provider Family Medicine; PCP Family Medicine; Referring Provider Physician Assistant; Visit Provider Physician Assistant
DX: H93.12 Tinnitus, left ear (principal); H93.232 Hyperacusis, left ear
CPT/HCPCS: 70551

== ENCOUNTER 2024-07-21 11:47 | Emergency (ER) | payer BC, SELFPAY ==
[2024-07-21 11:52] VITALS: BP 135/96; PULSE 85; RESP 16; TEMP 36.8; O2SAT 100; BMI 21.1
--- NOTE | 2024-07-21 12:16 | ED_ITS ---
HPI - Recheck/Abnormal Lab/Rx <Jesus Peña PA-C - Last Filed: 07/21/24 12:37> General Chief Complaint: Recheck/Abnormal Lab/Rx Stated Complaint: swollen face, t-2 Time Seen by Provider: 07/21/24 12:16 Source: patient Mode of arrival: Ambulatory History of Present Illness HPI narrative: This is a 48-year-old female presents emergency department due to facial erythema with mild reported edema affecting her bilateral upper cheek bones. She was history of rosacea. She states she was seen in the walk-in clinic yesterday and prescribed prednisone which she just began taking this morning, 20 mg b.i.d.. She denies any pain with ocular movement, fevers. Concerns maybe a dental infection. History of rosacea for which she was topical metronidazole as well as doxycycline. Related Data Home Medications Medication Instructions Recorded Confirmed metronidazole 0.75 % topical gel topical 07/20/24 07/20/24 Previous Rx's Medication Instructions Recorded prednisone 20 mg tablet 20 mg PO BID 2 days #4 tabs 07/20/24 prednisone 20 mg tablet 20 mg PO BID 3 days #6 tabs 07/21/24 Allergies Allergy/AdvReac Type Severity Reaction Status Date / Time epinephrine [EPINEPHRINE] Allergy Unknown Anaphylaxis Verified 07/21/24 11:52 iodine [IODINE] Allergy Unknown Swelling Verified 07/21/24 11:52 of Lip/Tongue/Throat Sulfa (Sulfonamide Allergy Unknown Swelling Verified 07/21/24 11:52 Antibiotics) of [SULFA (SULFONAMIDE Lip/Tongue/Throat ANTIBIOTICS)] nystatin [NYSTATIN] AdvReac Unknown Hives Verified 07/21/24 11:52 Review of Systems <Jesus Peña PA-C - Last Filed: 07/21/24 12:37> Review of Systems Narrative: GENERAL: Denies chills, fatigue, malaise, fever, sweats. HEENT: Denies sinus pain, ear pain, sore throat, difficulty swallowing, dizziness. RESPIRATORY: Denies dyspnea, cough, wheezing, hemoptysis, sputum. CARDIOVASCULAR: Denies chest pain, palpitations, orthopnea, edema, GASTROINTESTINAL: Denies nausea, vomiting, abdominal pain, diarrhea, constipation, melena. : Denies dysuria, frequency, incontinence, hematuria, urinary retention. MUSCULOSKELETAL: denies weakness, joint pain, or bony pain SKIN: Erythema and mild edema to her bilateral cheek bones NEUROLOGIC: Denies weakness, headache, numbness, change in speech, confusion, seizures, incoordination. PSYCHIATRIC: No concerning psychosocial issues. 12 point review of systems is negative except for those stated above Patient History <Jesus Peña PA-C - Last Filed: 07/21/24 12:37> Social History Smoking Status: Former smoker Smoking Status: Former smoker alcohol intake frequency: 3 or more drinks per day Substance Use Type: does not use Exam <Jesus Peña PA-C - Last Filed: 07/21/24 12:37> Narrative Exam Narrative: GENERAL: Well-developed patient, in mild distress. HEAD: Atraumatic. Normocephalic. EYES: Pupils equal round and reactive. Extraocular motions intact. No scleral icterus. No injection or drainage. ENT: Nose without bleeding, purulent drainage. Throat without erythema, tonsillar hypertrophy or exudate. Airway patent. No evidence of any dental abscesses or erythema in the gumline NECK: Trachea midline. Non tender EXTREMITIES: No edema or joint tenderness. NEURO: AOx3. SKIN: Rosacea affecting bilateral cheeks, possible very mild edema affecting the bilateral upper cheeks. No pain with ocular movement. No significant periorbital edema. Initial Vital Signs Initial Vital Signs: Vital Signs Temperature 98.3 F 07/21/24 11:52 Pulse Rate 85 07/21/24 11:52 Respiratory Rate 16 07/21/24 11:52 Blood Pressure 135/96 H 07/21/24 11:52 Pulse Oximetry 100 07/21/24 11:52 Oxygen Delivery Method Room Air 07/21/24 11:52 <Rossy Mathur MD - Last Filed: 07/21/24 18:35> Initial Vital Signs Initial Vital Signs: Vital Signs Temperature 98.3 F 07/21/24 11:52 Pulse Rate 85 07/21/24 11:52 Respiratory Rate 16 07/21/24 11:52 Blood Pressure 135/96 H 07/21/24 11:52 Pulse Oximetry 100 07/21/24 11:52 Oxygen Delivery Method Room Air 07/21/24 11:52 Course <Jesus Peña PA-C - Last Filed: 07/21/24 12:37> Vital Signs Vital signs: Vital Signs - 8 hr 07/21/24 11:52 Temperature 98.3 F Pulse Rate 85 Respiratory Rate 16 Blood Pressure 135/96 H Pulse Oximetry 100 Oxygen Delivery Method Room Air <Rossy Mathur MD - Last Filed: 07/21/24 18:35> Vital Signs Vital signs: Vital Signs - 8 hr 07/21/24 11:52 Temperature 98.3 F Pulse Rate 85 Respiratory Rate 16 Blood Pressure 135/96 H Pulse Oximetry 100 Oxygen Delivery Method Room Air MDM - Recheck/Abnormal Lab/Rx <Jesus Peña PA-C - Last Filed: 07/21/24 12:37> MDM Narrative Medical decision making narrative: ED course: This is a 48-year-old female presenting to the emergency department due to a possible flare in her chronic rosacea. Patient was prescribed prednisone 20 mg b.i.d. by provider yesterday for 2 days. We will extend course to 5 days until she was able to follow up with her strike warfare/missile systems officer early next week for long-term management. There was no erythema or oral abscesses concerning for any kind of dental infection. There was no pain with extraocular movement and no periorbital edema care concerning for orbital or preseptal cellulitis. Recommended supportive measures otherwise. We will defer chronic rosacea care as well as any acute treatments for rosacea flare to her established strike warfare/missile systems officer. CC: Cheek swelling Complicating co-morbidities: History of rosacea Data collected from: Previous notes Medical records reviewed: Patient was seen in the walk-in clinic yesterday due to swelling of the face. History of rosacea. Patient started metronidazole as well as low-dose doxycycline for rosacea in April by her strike warfare/missile systems officer. Patient was prescribed prednisone 20 mg b.i.d. for 2 days. Patient was last seen 3 years ago due to abdominal pain and bloating. No pertinent medical history at that time. Former smoker. Exam was reassuring. Patient was eventually discharged home with recommendations for supportive care. Differential considered, but not limited to: Rosacea flare, dental infection, preseptal cellulitis, orbital cellulitis Exam documented above, pertinent findings include: No pain with ocular movement or orbital edema, no evidence of infection in the mouth Lab Test results independently reviewed as above. Pertinent findings: None obtained Imaging studies independently reviewed: Not obtained Scores Used: None MIPS Elements: None Consultations: None Treatments: None Re-evaluations: None Discussion: Discussed plan with the patient was comfortable with the plan Diagnosis: Rosacea flare Disposition: see below, along with detailed discharge instructions that have been reviewed with patient as well as indications for ED re-evaluation and additional outpatient follow up Discharge Plan Departure Patient Disposition: Home Clinical Impression: Rosacea, unspecified Activity Restrictions/Additional Instructions: Thank you for coming to the [facility] Emergency Department today. I suspect that this is a flare of your chronic rosacea. We will extend the course of prednisone to take for a total of 5 days. I also recommend Benadryl at night as well as Zenobia during the day in the event that this is any kind of allergic reaction. Your oral exam was very reassuring I do not think this is any kind of dental abscess. Please see your strike warfare/missile systems officer early next week for continued management. Please return to the emergency department if you develop any difficulty breathing or swallowing, high fevers, or any other concerning signs or symptoms. I hope you feel better soon. Please follow up with your primary care provider within a week if your symptoms continue. If you do not have a primary care provider please contact the [facility] Resource line at [phone]. They will ask some questions about your medical history and help you get set up with a provider in the community. Prescriptions: New prednisone 20 mg tablet 20 mg PO BID 3 Days Qty: 6 0RF No Action metronidazole 0.75 % gel topical prednisone 20 mg tablet 20 mg PO BID 2 Days Qty: 4 0RF Referrals: Miracle Mathew MD [Primary Care Provider] - Stand Alone Forms: Patient Portal/API ED Sign-out <Rossy Mathur MD - Last Filed: 07/21/24 18:35> Cosign ED Attending Coscollinsature Attestation: I was immediately available in the department for consultation throughout this patient's visit. Rossy Mathur MD
== END 2024-07-21 12:41 | disposition home or self-care (01) ==
PROVIDERS: Emergency Provider Physician Assistant Medical; Family Provider Family Medicine; PCP Family Medicine
DX: L71.9 Rosacea, unspecified (principal)
CPT/HCPCS: 99281

== ENCOUNTER 2025-02-27 17:44 | Emergency (ER) | payer OTHER, SELFPAY ==
[2025-02-27 18:00] VITALS: BP 165/99; PULSE 75; RESP 18; TEMP 37.1; O2SAT 100; BMI 20.5
--- NOTE | 2025-02-27 18:10 | DI.RAD.S_ITS ---
PROCEDURE: XR HAND LT MIN 3V INDICATIONS: laceration with broken glass TECHNIQUE: 3 views of the hand(s) acquired. COMPARISON: None. FINDINGS: Bones: No fractures or dislocations. Carpal bones are normally aligned. No suspicious bony lesions. Soft tissues: No suspicious soft tissue calcifications. No radiopaque foreign body. IMPRESSION: No radiopaque foreign body. Dictated by: Richard Liz M.D. on 02/27/2025 at 18:50 Approved by: Richard Liz M.D. on 02/27/2025 at 18:51
--- NOTE | 2025-02-27 19:00 | PC.NURSE ---
pt has complicated history with vaccines. hx of anaphylaxis with flu shots and covid vaccines.
[2025-02-27 21:34] VITALS: BP 190/96; PULSE 70; RESP 18; O2SAT 98
--- NOTE | 2025-02-27 23:23 | ED_ITS ---
HPI - Wound/Laceration General Chief Complaint: Wound/Laceration Stated Complaint: lt hand injury Time Seen by Provider: 02/27/25 20:20 Source: patient, RN notes reviewed and old records reviewed Mode of arrival: Ambulatory Limitations: no limitations History of Present Illness HPI narrative: 49-year-old female with Laceration to patient's left index and middle finger and 4th finger and a 1 glass broke while she was polishing of the glass at work. Patient states she was cleaning it with a glass shattered. She states she was some superficial lacerations but the largest 1 is at the base of her 2nd finger. No numbness tingling or weakness and she appreciates full range of motion is present. She denies any other injuries. She does not think her tetanus is up-to-date. She notes she has a reaction to prior flu vaccinations I with since this, headaches and some other changes. She does not recall having any issues with prior tetanus vaccinations or other vaccinations. Patient was right-hand dominant. Related Data Home Medications Medication Instructions Recorded Confirmed metronidazole 0.75 % topical gel topical 07/20/24 07/20/24 Allergies Allergy/AdvReac Type Severity Reaction Status Date / Time epinephrine [EPINEPHRINE] Allergy Unknown Anaphylaxis Verified 07/21/24 11:52 iodine [IODINE] Allergy Unknown Swelling Verified 07/21/24 11:52 of Lip/Tongue/Throat Sulfa (Sulfonamide Allergy Unknown Swelling Verified 07/21/24 11:52 Antibiotics) of [SULFA (SULFONAMIDE Lip/Tongue/Throat ANTIBIOTICS)] nystatin [NYSTATIN] AdvReac Unknown Hives Verified 07/21/24 11:52 Review of Systems Review of Systems ROS Unobtainable: All systems reviewed & are unremarkable except as noted in HPI and below Patient History tobacco type: vaping alcohol intake frequency: 3 or more drinks per day Exam Narrative Exam Narrative: GENERAL: Alert and oriented x three, mild distress HEENT: Head normocephalic, atraumatic, EOMI, pupils reactive, face symmetric, moist mucous membranes NECK: Supple, full range of motion CARDIOVASCULAR: Regular rate and rhythm without murmurs, rubs or gallops. RESPIRATORY: Breath sounds equal bilaterally, no wheezes rales or rhonchi. EXTREMITIES: Normal range of motion, no clubbing or edema. Neurovascularly intact. Patient has a laceration of the 2nd finger at the base of the finger extending into the webspace between the 2nd and 3rd fingers does gape, patient has 2 superficial lacerations on the palmar side between the middle and proximal interphalangeal joints the 3rd and 4th fingers both less than half a cm and superficial. NEUROLOGICAL: Cranial nerves II through XII grossly intact. Moving all extremities SKIN: Warm, dry, no petechiae, no rashes or lesions otherwise noted. Initial Vital Signs Initial Vital Signs: Vital Signs Temperature 98.7 F 02/27/25 18:00 Pulse Rate 75 02/27/25 18:00 Respiratory Rate 18 02/27/25 18:00 Blood Pressure 165/99 H 02/27/25 18:00 Pulse Oximetry 100 02/27/25 18:00 Oxygen Delivery Method Room Air 02/27/25 18:00 Procedures Laceration Repair Laceration 1: Site: hand (Second finger) Side (If applicable): left Size (cm): 1 Description: irregular and clean Depth: simple, single layer Local Anesthetic: lidocaine 2% Amount of anesthesia used (mL): 4 Pre-repair: wound explored, irrigated extensively and deep structures intact Skin layer closed with: nylon Skin layer suture size: 5-0 Number of sutures: 3 Technique: simple, interrupted Course Orders Ordered: Discontinued Medications Diphtheria/Tetanus/Acell Pertussis (Tet,Diph,Pertuss(Acell),Vac/Pf 0.5 Ml Syringe) 0.5 ml IM .ONCE ONE Stop: 02/27/25 18:11 Last Admin: 02/27/25 19:01 Dose: Not Given Documented By: ZEE Diphtheria/Tetanus/Acell Pertussis (Tet,Diph,Pertuss(Acell),Vac/Pf 0.5 Ml Syringe) 0.5 ml IM .ONCE ONE Stop: 02/27/25 23:40 Last Admin: 02/27/25 23:54 Dose: 0.5 ml Documented By: NIRALI Lidocaine HCl (Lidocaine 2% Inj Sdv 5ml) 10 ml TOP NOW ONE Stop: 02/27/25 23:40 Last Admin: 02/27/25 23:54 Dose: 10 ml Documented By: NIRALI Vital Signs Vital signs: Vital Signs - 8 hr 02/27/25 21:34 02/28/25 00:14 Pulse Rate 70 72 Respiratory Rate 18 16 Blood Pressure 190/96 H 167/84 H Pulse Oximetry 98 98 Oxygen Delivery Method Room Air Room Air MDM - Wound/Laceration MDM Narrative Medical decision making narrative: Hand x-ray is negative for acute change. Patient required suture repair of laceration to her 2nd digit. none for the 3rd or 4th. Tetanus was updated. Discussed wound care directions and return precautions. L&I paperwork completed. Discharge Plan Departure Patient Disposition: Home Clinical Impression: Laceration of left index finger, Superficial laceration of finger Instructions: DI for Laceration Repair Activity Restrictions/Additional Instructions: Wound Care: Keep wound(s) clean and dry. Wash daily with soap and water only. Do not use over the counter products (alcohol or peroxide)on the wounds unless instructed by a physician. You can use triple antibiotic ointment to the affected area. If wound condition worsens (increased/expanding redness, developing fluid blisters, or worsening pain), either contact your doctor for an urgent re- assessment , or return to the Emergency Department. Because of the location of your cut you do not want to fully extend your fingers as this can cause your sutures to break or pull out. Return to the ED, urgent care, or visit a primary care doctor for removal of of sutures in 7-10 days Return if fever greater than 100.4 Fahrenheit, increased swelling, increasing pain or worsening symptoms such as increased discharge or spreading redness. Prescriptions: No Action metronidazole 0.75 % gel topical Referrals: Miracle Mathew MD [Primary Care Provider] - Stand Alone Forms: Patient Portal/API/Survey, Work Release Note
[2025-02-27] MEDS: LIDOCAINE 2% INJ SDV 5ML 10 ML TOP (23:54)
[2025-02-27] MEDS: TET,DIPH,PERTUSS(ACELL),VAC/PF 0.5 ML SYRINGE IM (23:54)
[2025-02-28 00:14] VITALS: BP 167/84; PULSE 72; RESP 16; O2SAT 98
== END 2025-02-28 00:14 | disposition home or self-care (01) ==
PROVIDERS: Emergency Provider Emergency Medicine; Family Provider Family Medicine; PCP Family Medicine
DX: S61.211A Laceration without foreign body of left index finger without damage to nail, initial encounter (principal); S61.213A Laceration without foreign body of left middle finger without damage to nail, initial encounter; S61.215A Laceration without foreign body of left ring finger without damage to nail, initial encounter; W25.XXXA Contact with sharp glass, initial encounter; Z23 Encounter for immunization
CPT/HCPCS: 12001; 73130; 90471; 99283; 99284; 90715

== ENCOUNTER → 2025-10-30 14:48 | Outpatient (CLI) | payer BC, SELFPAY ==
--- NOTE | 2025-10-30 14:50 | DI.RAD.S_ITS ---
PROCEDURE: XR WRIST RT MIN 3V INDICATIONS: r/o wrist fracture radial side TECHNIQUE: 4 views of the wrist were acquired. COMPARISON: None. FINDINGS: Bones: No fractures or dislocations. No suspicious bony lesions. Soft tissues: No suspicious soft tissue calcifications. IMPRESSION: No acute osseous abnormality. If pain persists with conservative management, consider repeat x-ray in 10-14 days or cross-sectional imaging. Dictated by: Brian Burnette M.D. on 10/30/2025 at 15:39 Approved by: Brian Burnette M.D. on 10/30/2025 at 15:40
== END ==
PROVIDERS: Family Provider Family Medicine; Referring Provider Chiropractor; Visit Provider Chiropractor
DX: M65.931 Unspecified synovitis and tenosynovitis, right forearm (principal)
CPT/HCPCS: 73110